=== PATIENT | female | born 1965 | race Caucasian/White ===

== ENCOUNTER 2019-03-27 10:06 | Day surgery (SDC) | payer OTHER ==
[~2019-03-27] VITALS: Ht 152.4 cm; Wt 53.1 kg
[2019-03-27] MEDS ORDERED: fentaNYL 0.05 MG/ML VIAL ONE (12:42)
[2019-03-27] MEDS ORDERED: LIDOCAINE 2% 100 MG/5 ML UJET TP ONE (12:42)
[2019-03-27] MEDS ORDERED: fentaNYL 0.05 MG/ML VIAL IVP ONE (13:45)
== END 2019-03-27 13:45 | disposition home or self-care (01) ==
LOC: MMU 10:06 → MOR 10:06
PROVIDERS: ATTEND Internal Medicine Gastroenterology
DX: R10.32 Left lower quadrant pain (principal); Z80.0 Family history of malignant neoplasm of digestive organs; Z88.0 Allergy status to penicillin; G43.909 Migraine, unspecified, not intractable, without status migrainosus; Z98.890 Other specified postprocedural states
CPT/HCPCS: 45378; J3010